=== PATIENT | male | born 1985 | race Caucasian/White ===

== ENCOUNTER → 2016-11-24 | Outpatient (CLI) | payer BC ==
--- NOTE | 2016-11-24 12:59 | CT ---
EXAMINATION TYPE: CT sinus wo con DATE OF EXAM: 11/24/2016 12:34 PM COMPARISON: NONE HISTORY: Chronic sinusitis, left side greater than right CT DLP: 660.[address] of the paranasal sinuses was performed in the axial and coronal planes. Bone and soft tissue settings are submitted. The paranasal sinuses demonstrate normal aeration and development. Moderate mucosal thickening and opacification of the maxillary sinuses, ethmoid air cells and frontal sinuses and to a lesser extent the sphenoid sinus. Obstruction right ostiomeatal unit with the moderate narrowing left ostiomeatal unit. The nasal septum is midline. No bony destructive changes are seen within the field of view. IMPRESSION: Moderate pansinusitis.
== END | disposition home or self-care (01) ==
LOC: RADCTMAIN 12:16
PROVIDERS: ATTEND Otolaryngology
DX: J32.4 Chronic pansinusitis (principal)
CPT/HCPCS: 70486

== ENCOUNTER → 2018-08-01 | Outpatient (CLI) | payer BC ==
--- NOTE | 2018-08-01 09:35 | CT ---
EXAMINATION TYPE: CT sinus wo con DATE OF EXAM: 08/01/2018 COMPARISON: Prior sinus CT November 24, 2016 HISTORY: Acute sinusitis per order, history of polypectomy last year with recurrent ear infection and sinus problems or facial pain for one month per patient. CT DLP: 686.5 mGycm. Automated Exposure Control for Dose Reduction was Utilized. TECHNIQUE: CT scan of the sinuses is performed without contrast, axial images are obtained, coronal r eformatted images are also reviewed. FINDINGS: Moderate lobulated mucosal thickening involving the left maxillary sinus is slightly improv ed from prior study. Cannot exclude recurrent posterior inferior polyp or cyst axial image 13. No cori picious air-fluid level is present on current study. Severe mucosal thickening more prominent from prior with patchy central opacification less prominent from prior right maxillary sinus is seen on current study. The surgically treated ostiomeatal comple x is patent bilaterally on the coronal images. Mild to moderate mucosal thickening anteriorly in bilateral sphenoid sinuses remains present without significant change. Moderate mucosal thickening involving ethmoid sinuses bilaterally most prominent anterior aspect is p erhaps slightly improved from prior study. Mild to moderate mucosal thickening involving inferior aspect bilateral frontal sinuses is identified , left frontal sinus is worse from prior. Right frontal sinus is improved without suspicious patchy o pacification on current study noted. Nasal septum is slightly deviated to right of midline unchanged in position from prior. Visualized portion of mastoid air cells show no abnormal opacification. The globes are intact bilate rally. IMPRESSION: Interval sinus surgery, surgically treated ostiomeatal complexes remain patent bilaterall y. There is however persistent acute on chronic paranasal sinus disease as detailed above.
== END | disposition home or self-care (01) ==
LOC: RADCTMAIN 07:06
PROVIDERS: ATTEND Family Medicine
DX: J01.80 Other acute sinusitis (principal); J32.8 Other chronic sinusitis; Z98.890 Other specified postprocedural states
CPT/HCPCS: 70486